=== PATIENT | male | born 1960 | race African-American/Black ===

== ENCOUNTER 2018-08-20 06:43 | Day surgery (SDC) | payer BC, OTHER ==
[2018-08-18 16:04] VITALS: BMI 28.7
[~2018-08-20 06:43] MED LIST: LACTATED RINGERS 1,000 ML IV SCH; LIDOCAINE 1% 20 ML VIAL (10MG/ML) FOR IV START INTRADERMA PRN
[2018-08-20 07:15] VITALS: RESP 16; TEMP 97.5
[2018-08-20 07:19] LABS: Glucose,Whole Blood 108 mg/dL (75-99)
[2018-08-20] MEDS ORDERED: PROPOFOL 10 MG/ML 20 ML VIAL IV ONE (07:47)
[2018-08-20] MEDS ORDERED: LIDOCAINE 1% INJ 10MG/ML (20 ML MDV) ONE (07:47)
[2018-08-20] MEDS ORDERED: GLYCOPYRROLATE 0.2 MG/ML 2 ML VIAL ONE (07:47)
--- NOTE | 2018-08-20 09:06 | P.GSHP ---
History of Present Illness H&P Date: 08/20/18 Chief Complaint: Screening colonoscopy This is a 58-year-old male who presents today for screening colonoscopy. Patient denies a significant GI complaints. Past Medical History Past Medical History: Diabetes Mellitus, Hyperlipidemia, Hypertension History of Any Multi-Drug Resistant Organisms: None Reported Past Surgical History: Appendectomy, Back Surgery, Tonsillectomy Additional Past Surgical History / Comment(s): SINUS SURGERY Past Anesthesia/Blood Transfusion Reactions: No Reported Reaction Smoking Status: Never smoker - Past Family History Father Family Medical History: Cancer Medications and Allergies Home Medications Medication Instructions Recorded Confirmed Type Chlorthalidone [Hygroten] 50 mg PO QAM 08/30/13 08/20/18 History Enalapril [Vasotec] 20 mg PO BID 08/30/13 08/20/18 History Nebivolol HCl [Bystolic] 10 mg PO QAM 08/30/13 08/20/18 History metFORMIN HCL [metFORMIN HCL ER] 750 mg PO BID 08/30/13 08/20/18 History sitaGLIPtin [Januvia] 100 mg PO QAM 08/30/13 08/20/18 History Empagliflozin [Jardiance] 25 mg PO QAM 08/18/18 08/20/18 History cloNIDine HCL [Catapres] 0.1 mg PO BID 08/18/18 08/20/18 History Allergies Allergy/AdvReac Type Severity Reaction Status Date / Time No Known Allergies Allergy Verified 08/20/18 07:08 Surgical - Exam Vital Signs Temp Pulse Resp BP Pulse Ox 97.5 F L 76 16 116/74 100 08/20/18 07:08 08/20/18 07:08 08/20/18 07:08 08/20/18 07:08 08/20/18 07:08 - General well developed, well nourished, no distress - Eyes PERRL - ENT normal pinna - Neck no masses - Respiratory normal expansion - Cardiovascular Rhythm: regular - Abdomen Abdomen: soft, non tender Results - Labs Abnormal Lab Results - Last 24 Hours (Table) 08/20/18 Range/Units 07:14 POC Glucose (mg/dL) 108 H (75-99) mg/dL Assessment and Plan Assessment: We'll perform screening colonoscopy.
--- NOTE | 2018-08-20 09:21 | P.OP ---
Date of Procedure: 08/20/18 Preoperative Diagnosis: Screening colonoscopy Postoperative Diagnosis: Normal colon Procedure(s) Performed: Colonoscopy Anesthesia: MAC Surgeon: Dean Briceño Pathology: none sent Condition: stable Disposition: PACU Description of Procedure: PROCEDURE: The patient was placed on the endoscopy table in the lateral position. Digital rectal examination was performed which revealed no abnormalities. The prostate was symmetrical without nodules. Flexible colonoscope was then placed in the patient's anus and passed throughout the entire colon. The ileocecal valve was visualized. The cecum, ascending, transverse, descending and sigmoid colon were normal. The rectum was normal as well. There were no masses, polyps or diverticula noted in the entire colon. SUMMARY OF FINDINGS: Normal colonoscopy.
[2018-08-20 09:50] VITALS: BP 103/66; PULSE 68
== END 2018-08-20 10:13 | disposition home or self-care (01) ==
LOC: ORWHC2ENDO 06:43
PROVIDERS: ATTEND Surgery
DX: Z12.11 Encounter for screening for malignant neoplasm of colon (principal); I10 Essential (primary) hypertension; E78.5 Hyperlipidemia, unspecified; E11.9 Type 2 diabetes mellitus without complications; Z79.84 Long term (current) use of oral hypoglycemic drugs; Z79.899 Other long term (current) drug therapy; Z97.2 Presence of dental prosthetic device (complete) (partial); Z80.9 Family history of malignant neoplasm, unspecified
CPT/HCPCS: G0121; J2001; J2704; 45378

== ENCOUNTER 2021-07-25 10:02 | Emergency (ER) | payer BC, OTHER ==
[2021-07-25 10:10] VITALS: BP 147/99; PULSE 87; RESP 16; TEMP 98.5
[2021-07-25] MEDS ORDERED: diphenhydrAMINE 50 MG/ML 1 ML VIAL IVP STA (10:22)
[2021-07-25] MEDS ORDERED: methylPREDNISolone SOD SUCCI 125 MG/2 ML VIAL IV STA (10:22)
[2021-07-25] MEDS ORDERED: FAMOTIDINE 20 MG/2 ML VIAL IV STA (10:22)
[2021-07-25 10:42] LABS: Basophils # (A) 0.1 k/uL (0-0.2); Basophils % (A) 1 %; Eosinophils # (A) 0.2 k/uL (0-0.7); Eosinophils % (A) 4 %; HCT 43.8 % (39.0-53.0); HGB 13.6 gm/dL (13.0-17.5); Lymphocytes # (A) 1.4 k/uL (1.0-4.8); Lymphocytes % (A) 24 %; MCH 30.4 pg (25.0-35.0); Mean Platelet Volume 7.4; Monocytes # (A) 0.5 k/uL (0-1.0); Monocytes % (A) 8 %; Neutrophils # (A) 3.5 k/uL (1.3-7.7); Neutrophils % (A) 60 %; Platelet Count 284 k/uL (150-450); RBC 4.47 m/uL (4.30-5.90); RDW 12.4 % (11.5-15.5); WBC 5.9 k/uL (3.8-10.6)
[2021-07-25 11:03] LABS: ALT 19 U/L (4-49); AST 23 U/L (17-59); African American GFR (CKD) >90 (>60 ml/min/1.73 sqM); Albumin 4.1 g/dL (3.5-5.0); Alkaline Phosphatase 74 U/L (38-126); Anion Gap 10 mmol/L; Blood Urea Nitrogen 21 mg/dL (9-20); Calcium 9.7 mg/dL (8.4-10.2); Carbon Dioxide 29 mmol/L (22-30); Chloride 100 mmol/L (98-107); Glucose 175 mg/dL (74-99); Non-African American GFR(CKD) 85 (>60 ml/min/1.73 sqM); Sodium 139 mmol/L (137-145); Total Bilirubin 0.5 mg/dL (0.2-1.3); Total Protein 7.7 g/dL (6.3-8.2)
--- NOTE | 2021-07-25 11:27 | ED ---
Allergic Reaction HPI - General Chief complaint: Allergic Reaction Stated complaint: swollen extremities,allergic reaction Time Seen by Provider: 07/25/21 10:17 Source: patient Mode of arrival: ambulatory Limitations: no limitations - History of Present Illness Initial Comments: Patient is a 61-year-old male presenting with chief complaint of ALLERGIC re action. Patient states that on Friday he received 3 vaccinations, tetanus, Covid booster, and hepatitis. States that by Friday evening he was experiencing hives and itching. After located mainly on the upper and lower extremities, as well as the sides and back. He has been taking Benadryl at home which has been somewhat helpful in alleviating his symptoms. He denies any chest pain, shortness of breath, chest tightness, dysphasia, throat swelling. Denies any fever, chills, nausea, vomiting, abdominal pain, numbness, tingling, vision or hearing changes, neck pain or stiffness, headache. - Related Data Home Medications Medication Instructions Recorded Confirmed Chlorthalidone [Hygroten] 50 mg PO QAM 08/30/13 08/20/18 Enalapril [Vasotec] 20 mg PO BID 08/30/13 08/20/18 Nebivolol HCl [Bystolic] 10 mg PO QAM 08/30/13 08/20/18 metFORMIN HCL [metFORMIN HCL ER] 750 mg PO BID 08/30/13 08/20/18 sitaGLIPtin [Januvia] 100 mg PO QAM 08/30/13 08/20/18 Empagliflozin [Jardiance] 25 mg PO QAM 08/18/18 08/20/18 cloNIDine HCL [Catapres] 0.1 mg PO BID 08/18/18 08/20/18 Previous Rx's Medication Instructions Recorded methylPREDNISolone Dose Pack 4 mg PO DIRECTED #1 packet 07/25/21 [Medrol Dose Pack] Allergies Allergy/AdvReac Type Severity Reaction Status Date / Time No Known Allergies Allergy Verified 07/25/21 10:10 Review of Systems ROS Statement: Those systems with pertinent positive or pertinent negative responses have been documented in the HPI. ROS Other: All systems not noted in ROS Statement are negative. Past Medical History Past Medical History: Diabetes Mellitus, Hyperlipidemia, Hypertension History of Any Multi-Drug Resistant Organisms: None Reported Past Surgical History: Appendectomy, Back Surgery, Tonsillectomy Additional Past Surgical History / Comment(s): SINUS SURGERY Past Anesthesia/Blood Transfusion Reactions: No Reported Reaction Past Psychological History: No Psychological Hx Reported Smoking Status: Never smoker Past Alcohol Use History: Occasional Past Drug Use History: None Reported - Past Family History Father Family Medical History: Cancer General Exam Limitations: no limitations General appearance: alert, in no apparent distress Head exam: Present: atraumatic, normocephalic, normal inspection Eye exam: Present: normal appearance, EOMI. Absent: scleral icterus ENT exam: Present: normal exam, normal oropharynx, mucous membranes moist Neck exam: Present: normal inspection Respiratory exam: Present: normal lung sounds bilaterally. Absent: respiratory distress, wheezes, rales, rhonchi, stridor Cardiovascular Exam: Present: regular rate, normal rhythm, normal heart sounds. Absent: systolic murmur, diastolic murmur, rubs, gallop, clicks Neurological exam: Present: alert, oriented X3, CN II-XII intact Psychiatric exam: Present: normal affect, normal mood Skin exam: Present: warm, dry, intact, urticaria (On the upper and lower extremities bilaterally) Course Vital Signs 07/25/21 10:04 Temperature 98.5 F Pulse Rate 87 Respiratory 16 Rate Blood Pressure 147/99 O2 Sat by Pulse 99 Oximetry Medical Decision Making - Medical Decision Making Patient is a 61-year-old male presenting for evaluation of ALLERGIC reaction. Patient states that symptoms of hives and itching began on Friday night. States that he received his tetanus, Covid booster, hepatitis vaccination on Friday, otherwise no new foods, medications, or products. He denies any shortness of breath, chest tightness, dysphasia. On examination lungs are clear to auscultation, there mild hives located on the bilateral upper and lower extremities. Patient was given Benadryl, Pepcid, Solu-Medrol. Patient states that his symptoms are somewhat alleviated at this time. He appears stable for discharge and outpatient follow-up at this time. Educated patient on return parameters and alarming symptoms. Follow-up with PCP this week. Report back to ER if any worsening symptoms. Continue the use of Benadryl as needed. Patient was sent with a prescription for Medrol Dosepak. Take medication as prescribed. Answered all questions. Patient conveyed verbal understanding and agreed to the plan. - Lab Data Result diagrams: 07/25/21 10:15 07/25/21 10:15 Lab Results 07/25/21 07/25/21 Range/Units 10:15 10:15 WBC 5.9 (3.8-10.6) k/uL RBC 4.47 (4.30-5.90) m/uL Hgb 13.6 (13.0-17.5) gm/dL Hct 43.8 (39.0-53.0) % MCV 98.0 (80.0-100.0) fL MCH 30.4 (25.0-35.0) pg MCHC 31.0 (31.0-37.0) g/dL RDW 12.4 (11.5-15.5) % Plt Count 284 (150-450) k/uL MPV 7.4 Neutrophils % 60 % Lymphocytes % 24 % Monocytes % 8 % Eosinophils % 4 % Basophils % 1 % Neutrophils # 3.5 (1.3-7.7) k/uL Lymphocytes # 1.4 (1.0-4.8) k/uL Monocytes # 0.5 (0-1.0) k/uL Eosinophils # 0.2 (0-0.7) k/uL Basophils # 0.1 (0-0.2) k/uL Sodium 139 (137-145) mmol/L Potassium 4.0 (3.5-5.1) mmol/L Chloride 100 (98-107) mmol/L Carbon Dioxide 29 (22-30) mmol/L Anion Gap 10 mmol/L BUN 21 H (9-20) mg/dL Creatinine 0.97 (0.66-1.25) mg/dL Est GFR (CKD-EPI)AfAm >90 (>60 ml/min/1.73 sqM) Est GFR (CKD-EPI)NonAf 85 (>60 ml/min/1.73 sqM) Glucose 175 H (74-99) mg/dL Calcium 9.7 (8.4-10.2) mg/dL Total Bilirubin 0.5 (0.2-1.3) mg/dL AST 23 (17-59) U/L ALT 19 (4-49) U/L Alkaline Phosphatase 74 (38-126) U/L Total Protein 7.7 (6.3-8.2) g/dL Albumin 4.1 (3.5-5.0) g/dL Disposition Clinical Impression: Allergic reaction Disposition: HOME SELF-CARE Condition: Good Instructions (If sedation given, give patient instructions): Urticaria (ED) Additional Instructions: Take medications as prescribed. Continue to take Benadryl as needed, per package instructions. Follow-up with your primary care in 1-2 days. Report back to ER if any worsening symptoms. Prescriptions: methylPREDNISolone Dose Pack [Medrol Dose Pack] 4 mg PO DIRECTED #1 packet Is patient prescribed a controlled substance at d/c from ED?: No Referrals: Chato Villela MD [Primary Care Provider] - 1-2 days Time of Disposition: 11:27
== END 2021-07-25 11:43 | disposition home or self-care (01) ==
LOC: EC 10:02
DX: T78.40XA Allergy, unspecified, initial encounter (principal); I10 Essential (primary) hypertension; E11.9 Type 2 diabetes mellitus without complications
CPT/HCPCS: 36415; 80053; 85025; 99284; 96374; 96375; J1200; J2930

== ENCOUNTER 2023-05-08 09:48 | Emergency (ER) | payer OTHER ==
[2023-05-08 10:04] VITALS: RESP 18
[2023-05-08] MEDS: SODIUM CHLORIDE 0.9% 1,000 ML IV STA (10:48)
[2023-05-08 10:56] LABS: Basophils % (A) 0 %; Eosinophils # (A) 0.4 k/uL (0-0.7); Eosinophils % (A) 4 %; HCT 28.6 % (39.0-53.0); HGB 8.9 gm/dL (13.0-17.5); Hypochromasia Marked; Lymphocytes # (A) 1.3 k/uL (1.0-4.8); Lymphocytes % (A) 13 %; MCHC 31.2 g/dL (31.0-37.0); MCV 80.3 fL (80.0-100.0); Mean Platelet Volume 7.6; Monocytes # (A) 0.8 k/uL (0-1.0); Monocytes % (A) 7 %; Neutrophils # (A) 7.8 k/uL (1.3-7.7); Neutrophils % (A) 73 %; Platelet Count 629 k/uL (150-450); RBC 3.56 m/uL (4.30-5.90); WBC 10.6 k/uL (3.8-10.6)
[2023-05-08 10:57] LABS: Appearance,Urine Clear (Clear); Bilirubin,Urine Negative (Negative); Blood,Urine Negative (Negative); Color,Urine Colorless; Glucose,Urine (UA) 4+ (Negative); Ketones,Urine Negative (Negative); Leukocyte Esterase,Urine Negative (Negative); Nitrite,Urine Negative (Negative); PH, Urine 5.5 (5.0-8.0); Protein,Urine Negative (Negative); Specific Gravity,Urine 1.026 (1.001-1.035); Urobilinogen,Urine <2.0 mg/dL (<2.0)
[2023-05-08 11:05] LABS: INR 0.9 (<1.2); Prothrombin Time 10.4 sec (10.0-12.5)
[2023-05-08 11:11] LABS: ALT 15 U/L (4-49); AST 21 U/L (17-59); African American GFR (CKD) 67 (>60 ml/min/1.73 sqM); Albumin 4.1 g/dL (3.5-5.0); Alkaline Phosphatase 87 U/L (38-126); Amylase 68 U/L (30-110); Anion Gap 11 mmol/L; Blood Urea Nitrogen 31 mg/dL (9-20); Calcium 10.1 mg/dL (8.4-10.2); Carbon Dioxide 28 mmol/L (22-30); Chloride 99 mmol/L (98-107); Glucose 183 mg/dL (74-99); Lipase 150 U/L (23-300); Non-African American GFR(CKD) 58 (>60 ml/min/1.73 sqM); Potassium 4.5 mmol/L (3.5-5.1); Sodium 138 mmol/L (137-145); Total Bilirubin 0.3 mg/dL (0.2-1.3); Total Protein 7.9 g/dL (6.3-8.2)
--- NOTE | 2023-05-08 11:57 | CT ---
EXAMINATION TYPE: CT ChestAbdPelvis w con DATE OF EXAM: 05/08/2023 INDICATION: Umbilicus pain for several months COMPARISON: None CT DLP: 1081.8 mGycm CONTRAST: Performed without Oral Contrast and with IV Contrast, patient injected with 100 ml mL of Isovue 300. TECHNIQUE: Axial images at 5 mm thick sections. Reconstructed images in the coronal plane. Delayed images through the kidneys. FINDINGS: CT CHEST: Portion of the thyroid visualized is normal. There is a small to moderate left pleural effusion. Minimal adjacent compressive atelectasis may be p resent. No enlarged mediastinal or hilar adenopathy is evident. The ascending aorta diameter at the level of the main pulmonary artery is 3.7 cm. The main pulmonary artery diameter at the bifurcation is 3.[address] ABDOMEN: Mild ascites is present. Minimal perinephric fluid is present on the right. Liver: Normal Spleen: Normal Pancreas: Normal Adrenal glands: The adrenal glands are normal. Gallbladder: Normal Kidneys: No masses are evident. No hydronephrosis is present. No cysts are present. No renal stone s are evident. Delayed images obtained through the kidneys appear unremarkable Aorta: Mild Vascular calcification is within the aorta. Inferior vena cava: Normal. CT PELVIS: There is some nonspecific fluid-filled small bowel loops within the midabdomen. Normal colonic bowel gas with some fecal debris is present. The study is without oral contrast limiting bowel evaluation. Appendix: Not identified. There may be a prior appendectomy. Correlate with surgical history. No susp icious dilated tubular structures or inflammatory changes evident. Urinary bladder: Normal. Genitourinary structures: Prostate appears normal Osseous structures: No suspicious lytic or sclerotic lesions. IMPRESSION: 1. Small to moderate left pleural effusion. 2. Mild ascites within the abdomen and pelvis. 3. Fluid-filled nondilated small bowel loops within the midabdomen. Correlate for ileus.
--- NOTE | 2023-05-08 12:48 | ED ---
General Adult HPI - General Chief complaint: Abdominal Pain Stated complaint: ABD pain, needs CAT scan Time Seen by Provider: 05/08/23 09:58 Source: patient, RN notes reviewed, old records reviewed Mode of arrival: ambulatory Limitations: no limitations - History of Present Illness Initial comments: Patient is a 62-year-old male who presents emergency department complaining of abdominal pain for the last 3 to 4 months. Patient seems to be primarily at the umbilicus. Originally thought it may be related to hernia and was due to follow-up with Dr. Mccallum. He saw him in the office today and I was contacted to obtain CT imaging for the patient is Dr. Mccallum is concern for possible malignancy. Denies any chest pain or shortness of breath. Denies any nausea, vomiting, diarrhea. He has no other acute complaints at this time. Presents for further evaluation at this time.Patient endorses recent weight loss as well over the last few months. - Related Data Home Medications Medication Instructions Recorded Confirmed Chlorthalidone [Hygroten] 50 mg PO QAM 08/30/13 08/20/18 Enalapril [Vasotec] 20 mg PO BID 08/30/13 08/20/18 Nebivolol HCl [Bystolic] 10 mg PO QAM 08/30/13 08/20/18 metFORMIN HCL [metFORMIN HCL ER] 750 mg PO BID 08/30/13 08/20/18 sitaGLIPtin [Januvia] 100 mg PO QAM 08/30/13 08/20/18 Empagliflozin [Jardiance] 25 mg PO QAM 08/18/18 08/20/18 cloNIDine HCL [Catapres] 0.1 mg PO BID 08/18/18 08/20/18 Previous Rx's Medication Instructions Recorded methylPREDNISolone Dose Pack 4 mg PO DIRECTED #1 packet 07/25/21 [Medrol Dose Pack] Allergies Allergy/AdvReac Type Severity Reaction Status Date / Time No Known Allergies Allergy Verified 05/08/23 09:59 Review of Systems ROS Statement: Those systems with pertinent positive or pertinent negative responses have been documented in the HPI. Review of Systems: CONST: Denies fever EYES: Denies blurry vision ENT: Denies nasal congestion C/V: Denies Chest pain RESP: Denies shortness of breath GI: Endorses abdominal pain : Denies dysuria SKIN: Denies rash. MSK: Denies joint pain. NEURO: Denies headache ROS Other: All systems not noted in ROS Statement are negative. Past Medical History Past Medical History: Diabetes Mellitus, Hyperlipidemia, Hypertension History of Any Multi-Drug Resistant Organisms: None Reported Past Surgical History: Appendectomy, Back Surgery, Tonsillectomy Additional Past Surgical History / Comment(s): SINUS SURGERY Past Anesthesia/Blood Transfusion Reactions: No Reported Reaction Past Psychological History: No Psychological Hx Reported Smoking Status: Never smoker Past Alcohol Use History: Occasional Past Drug Use History: None Reported - Past Family History Father Family Medical History: Cancer General Exam - General Exam Comments Initial Comments: General: Appears in no acute distress. HEAD: Normal with no signs of head trauma. EYES: PERRLA, EOMI, conjunctiva normal, no discharge. ENT: Hearing grossly intact, normal oropharynx. RESPIRATORY: Clear breath sounds bilaterally. No wheezes, rales, or rhonchi. C/V: Regular rate and rhythm. S1 and S2 auscultated, no edema, peripheral pulses 2+ and intact throughout ABD: Abdomen is soft, nondistended. Tender to palpation around the umbilicus. Does appear to have some small masses or possible palpable lymph nodes in the abdominal wall. Concern for possible malignancy or masses. EXT: Normal range of motion, no obvious deformity SKIN: No rashes or lesions observed on exposed skin. NEURO: Alert and oriented x 4. Limitations: no limitations Course Vital Signs 05/08/23 05/08/23 09:57 12:43 Temperature 98.5 F 98.1 F Pulse Rate 87 78 Respiratory 18 18 Rate Blood Pressure 146/89 144/94 O2 Sat by Pulse 100 99 Oximetry Medical Decision Making - Medical Decision Making Was pt. sent in by a medical professional or institution (, PA, [employer], urgent care, hospital, or penitentiary...) When possible be specific @ -Patient sent by Dr. Mccallum, his surgeon Did you speak to anyone other than the patient for history (EMS, parent, family, police, friend...)? What history was obtained from this source @ -No Did you review nursing and triage notes (agree or disagree)? Why? @ -I reviewed and agree with nursing and triage notes Were old charts reviewed (outside hosp., previous admission, EMS record, old EKG, old radiological studies, urgent care reports/EKG's, penitentiary records)? Report findings @ -Old charts reviewed Differential Diagnosis (chest pain, altered mental status, abdominal pain women, abdominal pain men, vaginal bleeding, weakness, fever, dyspnea, syncope, headach e, dizziness, GI bleed, back pain, seizure, CVA, palpatations, mental health, musculoskeletal)? @ -Differential Abdominal Pain Men: Appendicitis, cholecystitis, diverticulosis, ischemic bowel, pancreatitis, hepatitis, UTI, gastroenteritis, AAA, incarcerated hernia, bowel obstruction, constipation, inflammatory bowel, hepatitis, peptic ulcer disease, splenic infarction, perforated viscus, testicular torsion, this is not meant to be an all-inclusive list EKG interpreted by me (3pts min.). @ -As above X-rays interpreted by me (1pt min.). @ -None done CT interpreted by me (1pt min.). @ -CT imaging appears to show findings concerning for carcinomatosis throughout the abdomen. Radiology interpreted as revealing ascites, as well as moderate left pleural effusion only. No mention of possible masses however patient does have thickening of the omentum which is concerning. U/S interpreted by me (1pt. min.). @ -None done What testing was considered but not performed or refused? (CT, X-rays, U/S, labs)? Why? @ -None What meds were considered but not given or refused? Why? @ -None Did you discuss the management of the patient with other professionals (professionals i.e. , PA, [employer], lab, RT, psych nurse, drug abuse social worker, manager machine, teacher, disbursing officer, rn case management)? Give summary @ -Discussed imaging with Dr. Mccallum who sent the patient for CT imaging. We both agree findings concerning for carcinomatosis. Both would like the patient to follow-up with oncology for further workup. Radiology did not interpreted as this, and Dr. Mccallum will reach out to radiology for addendum, as there is obvious concern on imaging. I spoke with Dr. Villela the patient's PCP who expressed understanding and will arrange for follow-up for the patient with oncology. Recommended he see the patient in the office tomorrow. Was smoking cessation discussed for >3mins.? @ -No Was critical care preformed (if so, how long)? @ -No Were there social determinants of health that impacted care today? How? (Homelessness, low income, unemployed, alcoholism, drug addiction, transportation, low edu. Level, literacy, decrease access to med. care, senior living, rehab)? @ -No Was there de-escalation of care discussed even if they declined (Discuss DNR or withdrawal of care, Hospice)? DNR status @ -No What co-morbidities impacted this encounter? (DM, HTN, Smoking, COPD, CAD, Cancer, CVA, ARF, Chemo, Hep., AIDS, mental health diagnosis, sleep apnea, morbid obesity)? @ -None Was patient admitted / discharged? Hospital course, mention meds given and route, prescriptions, significant lab abnormalities, going to OR and other pertinent info. @ -Based on the patient's presentation and physical exam, presents emergency department for abdominal pain for months. Concern for possible malignancy after being sent from his surgeons office Dr. Mccallum. We will obtain CT imaging and abdominal labs. Vital signs within acceptable limits. Labs are remarkable for an anemia with a hemoglobin of 8.9. Remainder the workup relatively unremarkable. CT imaging concerning for carcinomatosis. Did discuss the imaging results with Dr. Mccallum as radiology did not comment on this and he was in agreement with this a ssessment and will work on having radiology to addend the reading. Recommended that patient be discharged with close outpatient follow-up with PCP as well as oncology. I did discuss with patient's PCP, Dr. Villela who is in agreement with this plan and he will see the patient in the office tomorrow. I spoke with the patient regarding all these findings as well as the plan. He expressed understa nding. He is currently resting comfortably with no complaints. Patient will follow-up with Dr. Villela tomorrow with eventual follow-up with oncology. I instructed the patient to follow up with their PCP in the next 1-3 days. I explained that the patient should return to the emergency department if they experience any worsening symptoms. Strict return precautions were discussed with the patient. The patient expressed understanding of these instructions. I answered all questions that the patient had. The patient was discharged home in fair condition with their prescriptions and follow up information. Undiagnosed new problem with uncertain prognosis? @ -No Drug Therapy requiring intensive monitoring for toxicity (Heparin, Nitro, Insulin, Cardizem)? @ -No Were any procedures done? @ -No Diagnosis/symptom? @ -Abdominal pain, concern for abdominal malignancy Acute, or Chronic, or Acute on Chronic? @ -Acute Uncomplicated (without systemic symptoms) or Complicated (systemic symptoms)? @ -Complicated Side effects of treatment? @ -No Exacerbation, Progression, or Severe Exacerbation? @ -No Poses a threat to life or bodily function? How? (Chest pain, [place], [place], pneumonia, PE, COPD, DKA, ARF, appy, cholecystitis, CVA, Diverticulitis, Homicidal, Suicidal, threat to staff... and all critical care pts) @ -Unlikely in the acute setting - Lab Data Result diagrams: 05/08/23 10:32 05/08/23 10:32 Lab Results 05/08/23 05/08/23 05/08/23 Range/Units 10:32 10:32 10:32 WBC 10.6 (3.8-10.6) k/uL RBC 3.56 L (4.30-5.90) m/uL Hgb 8.9 L (13.0-17.5) gm/dL Hct 28.6 L (39.0-53.0) % MCV 80.3 (80.0-100.0) fL MCH 25.0 (25.0-35.0) pg MCHC 31.2 (31.0-37.0) g/dL RDW 15.0 (11.5-15.5) % Plt Count 629 H (150-450) k/uL MPV 7.6 Neutrophils % 73 % Lymphocytes % 13 % Monocytes % 7 % Eosinophils % 4 % Basophils % 0 % Neutrophils # 7.8 H (1.3-7.7) k/uL Lymphocytes # 1.3 (1.0-4.8) k/uL Monocytes # 0.8 (0-1.0) k/uL Eosinophils # 0.4 (0-0.7) k/uL Basophils # 0.0 (0-0.2) k/uL Hypochromasia Marked PT 10.4 (10.0-12.5) sec INR 0.9 (<1.2) APTT 31.0 H (22.0-30.0) sec Sodium (137-145) mmol/L Potassium (3.5-5.1) mmol/L Chloride (98-107) mmol/L Carbon Dioxide (22-30) mmol/L Anion Gap mmol/L BUN (9-20) mg/dL Creatinine (0.66-1.25) mg/dL Est GFR (CKD-EPI)AfAm (>60 ml/min/1.73 sqM) Est GFR (CKD-EPI)NonAf (>60 ml/min/1.73 sqM) Glucose (74-99) mg/dL Calcium (8.4-10.2) mg/dL Total Bilirubin (0.2-1.3) mg/dL AST (17-59) U/L ALT (4-49) U/L Alkaline Phosphatase (38-126) U/L Total Protein (6.3-8.2) g/dL Albumin (3.5-5.0) g/dL Amylase (30-110) U/L Lipase (23-300) U/L Urine Color Colorless Urine Appearance Clear (Clear) Urine pH 5.5 (5.0-8.0) Ur Specific [place] 1.026 (1.001-1.035) Urine Protein Negative (Negative) Urine Glucose (UA) 4+ H (Negative) Urine Ketones Negative (Negative) Urine Blood Negative (Negative) Urine Nitrite Negative (Negative) Urine Bilirubin Negative (Negative) Urine Urobilinogen <2.0 (<2.0) mg/dL Ur Leukocyte Esterase Negative (Negative) 05/08/23 Range/Units 10:32 WBC (3.8-10.6) k/uL RBC (4.30-5.90) m/uL Hgb (13.0-17.5) gm/dL Hct (39.0-53.0) % MCV (80.0-100.0) fL MCH (25.0-35.0) pg MCHC (31.0-37.0) g/dL RDW (11.5-15.5) % Plt Count (150-450) k/uL MPV Neutrophils % % Lymphocytes % % Monocytes % % Eosinophils % % Basophils % % Neutrophils # (1.3-7.7) k/uL Lymphocytes # (1.0-4.8) k/uL Monocytes # (0-1.0) k/uL Eosinophils # (0-0.7) k/uL Basophils # (0-0.2) k/uL Hypochromasia PT (10.0-12.5) sec INR (<1.2) APTT (22.0-30.0) sec Sodium 138 (137-145) mmol/L Potassium 4.5 (3.5-5.1) mmol/L Chloride 99 (98-107) mmol/L Carbon Dioxide 28 (22-30) mmol/L Anion Gap 11 mmol/L BUN 31 H (9-20) mg/dL Creatinine 1.31 H (0.66-1.25) mg/dL Est GFR (CKD-EPI)AfAm 67 (>60 ml/min/1.73 sqM) Est GFR (CKD-EPI)NonAf 58 (>60 ml/min/1.73 sqM) Glucose 183 H (74-99) mg/dL Calcium 10.1 (8.4-10.2) mg/dL Total Bilirubin 0.3 (0.2-1.3) mg/dL AST 21 (17-59) U/L ALT 15 (4-49) U/L Alkaline Phosphatase 87 (38-126) U/L Total Protein 7.9 (6.3-8.2) g/dL Albumin 4.1 (3.5-5.0) g/dL Amylase 68 (30-110) U/L Lipase 150 (23-300) U/L Urine Color Urine Appearance (Clear) Urine pH (5.0-8.0) Ur Specific [place] (1.001-1.035) Urine Protein (Negative) Urine Glucose (UA) (Negative) Urine Ketones (Negative) Urine Blood (Negative) Urine Nitrite (Negative) Urine Bilirubin (Negative) Urine Urobilinogen (<2.0) mg/dL Ur Leukocyte Esterase (Negative) Disposition Clinical Impression: Abdominal mass Disposition: HOME SELF-CARE Condition: Fair Additional Instructions: Follow up with Dr. Villela for oncology follow up over concern for malignancy and abdominal masses concerning for carcinomatosis. Is patient prescribed a controlled substance at d/c from ED?: No Referrals: Chato Villela MD [Primary Care Provider] - 1-2 days Blanco Mittal MD [STAFF PHYSICIAN] - 1-2 days Emilio Vallejo [STAFF PHYSICIAN] - 1-2 days Time of Disposition: 12:41
[2023-05-08 13:15] VITALS: BP 144/94; PULSE 78; TEMP 98.1
== END 2023-05-08 13:13 | disposition home or self-care (01) ==
LOC: EC 09:48
DX: K56.7 Ileus, unspecified (principal); R18.8 Other ascites; J90 Pleural effusion, not elsewhere classified; E11.9 Type 2 diabetes mellitus without complications; I10 Essential (primary) hypertension; Z79.899 Other long term (current) drug therapy; Z79.84 Long term (current) use of oral hypoglycemic drugs
CPT/HCPCS: 36415; 80053; 82150; 83690; 85025; 85610; 85730; 81003; 71260; 74177; 99284; 96360; 96361; Q9967

== ENCOUNTER → 2023-05-29 | Outpatient (CLI) | payer OTHER ==
--- NOTE | 2023-06-01 08:41 | PE ---
EXAMINATION TYPE: PET CT fusion skull to thigh DATE OF EXAM: 05/29/2023 CLINICAL INDICATION:Male, 62 years old with history of R59.0 LOCALIZED ENLARGED LYMPH NODES; TECHNIQUE: Following the intravenous administration of 8.84 mCi of F-18 FDG, whole body images are performed from the skull base to the midthigh. Images are reviewed on the computer in the coronal, a xial, and sagittal planes. Reconstructed rotating images are created on independent workstation and reviewed on the computer. A non-contrast CT is performed in conjunction with the PET scan. Glucose level 122 mg/dL CT DLP: 08/18/1977 mGycm, Automated exposure control for dose reduction was used. COMPARISON: CT 05/08/2023, PET/CT None, FINDINGS: Mediastinal SUV mean is 1.8. Hepatic parenchyma SUV mean is 2.5. SKULL BASE AND NECK: No suspicious radiotracer activity. CHEST, MEDIASTINUM, AND HILAR REGION: * Anterior right epicardial fat lymph nodes max SUV 4.1. * Right internal mammary memory lymph node max SUV 2.2 ABDOMEN AND PELVIS: * Intense uptake within the bowel limits evaluation. Abnormal uptake with examples below: * There is nodularity to the omentum most pronounced on e series 3 image 131 which shows a radiotrac er uptake max SUV 11.0. * Uptake along the liver capsule anteriorly max SUV 7.1 * Another focus of radiotracer uptake in the mid abdomen extends a prior max SUV 9.6. * Uptake extends into the umbilicus max SUV 6.7 MUSCULOSKELETAL STRUCTURES: No suspicious radiotracer activity. OTHER CT: Large left pleural effusion with associated atelectasis. The heart is mildly enlarged for s ize. Trace free abdominal fluid. IMPRESSION: Intense uptake throughout the bowel limits evaluation within the abdomen and mesentery. There is upta ke within omental caking throughout the mesentery as well as a few scattered thoracic lymph nodes fin dings suspicious for malignancy.
== END | disposition home or self-care (01) ==
LOC: RADPETMAIN 06:26
PROVIDERS: ATTEND Internal Medicine
DX: R59.0 Localized enlarged lymph nodes (principal)
CPT/HCPCS: 78815; A9552

== ENCOUNTER 2023-06-16 11:22 | Day surgery (SDC) | payer OTHER ==
[2023-06-13 09:42] VITALS: BMI 26.4
[~2023-06-16 11:22] MED LIST changes: +HYDROmorphone 0.5 MG/0.5 ML SYRINGE IVP PRN; -LACTATED RINGERS 1,000 ML IV SCH; +LIDOCAINE 1% (10MG/ML) FOR IV START INTRADERMA PRN; -LIDOCAINE 1% 20 ML VIAL (10MG/ML) FOR IV START INTRADERMA PRN; +Pre Op ABX Message 1 EACH MISC MISCELLANE ONE
[2023-06-16] MEDS: LACTATED RINGERS 1,000 ML IV SCH (11:50)
[2023-06-16 12:13] LABS: Glucose,Whole Blood 139 mg/dL (70-110)
[2023-06-16] MEDS: HEPARIN SODIUM,PORCINE 5,000 UNIT/ML 1 ML VIAL SQ PRN (12:14)
[2023-06-16] MEDS: ONDANSETRON 4 MG/2 ML VIAL IVP ONE (12:14)
[2023-06-16] MEDS: ACETAMINOPHEN TAB 500 MG TAB PO PRN (12:14)
--- NOTE | 2023-06-16 12:30 | P.GSHP ---
History of Present Illness H&P Date: 06/16/23 Chief Complaint: Colon cancer 62-year-old male here for Port-A-Cath placement. Patient recently found to have metastatic adenocarcinoma. Will be starting palliative chemotherapy soon. He has lost further weight since he was last seen in the office. Past Medical History Past Medical History: Cancer, Diabetes Mellitus, Hyperlipidemia, Hypertension Additional Past Medical History / Comment(s): Current colon cancer. History of Any Multi-Drug Resistant Organisms: None Reported Past Surgical History: Appendectomy, Back Surgery, Tonsillectomy Additional Past Surgical History / Comment(s): SINUS SURGERY. Past Anesthesia/Blood Transfusion Reactions: No Reported Reaction Smoking Status: Never smoker - Past Family History Father Family Medical History: Cancer Medications and Allergies Home Medications Medication Instructions Recorded Confirmed Type Chlorthalidone [Hygroten] 50 mg PO QAM 08/30/13 06/13/23 History Enalapril [Vasotec] 20 mg PO BID 08/30/13 06/13/23 History metFORMIN HCL [metFORMIN HCL ER] 750 mg PO BID 08/30/13 06/13/23 History sitaGLIPtin [Januvia] 100 mg PO QAM 08/30/13 06/13/23 History Empagliflozin [Jardiance] 25 mg PO QAM 08/18/18 06/13/23 History cloNIDine HCL [Catapres] 0.1 mg PO BID 08/18/18 06/13/23 History Rosuvastatin [Crestor] 10 mg PO DAILY 06/13/23 06/13/23 History Tamsulosin [Flomax] 0.4 mg PO DAILY 06/13/23 06/13/23 History carvediloL [Coreg] 6.25 mg PO BID 06/13/23 06/13/23 History Allergies Allergy/AdvReac Type Severity Reaction Status Date / Time No Known Allergies Allergy Verified 06/16/23 12:26 Surgical - Exam Vital Signs Temp Pulse Resp BP Pulse Ox 97.5 F L 85 16 144/89 98 06/16/23 12:04 06/16/23 12:04 06/16/23 12:04 06/16/23 12:04 06/16/23 12:04 Physical exam: General: Well-developed, well-nourished HEENT: Normocephalic, sclerae nonicteric Abdomen: Nontender, nondistended Extremities: No edema Neuro: Alert and oriented Results - Labs Abnormal Lab Results - Last 24 Hours (Table) 06/16/23 Range/Units 12:11 POC Glucose (mg/dL) 139 H (70-110) mg/dL Assessment and Plan (1) Metastatic adenocarcinoma Narrative/Plan: 62-year-old male with metastatic adenocarcinoma. Will proceed with Port-A-Cath placement at this time. Risks of bleeding, infection, DVT, pneumothorax, catheter malfunction, anesthesia related complications were discussed. The patient understands and wishes to proceed. Current Visit: Yes Status: Acute Code(s): C79.9 - SECONDARY MALIGNANT NEOPLASM OF UNSPECIFIED SITE SNOMED Code(s): 259049803848836
[2023-06-16 12:41] LABS: Anisocytosis Slight; Basophils % (A) 0 %; Eosinophils # (A) 0.2 k/uL (0-0.7); Eosinophils % (A) 2 %; HCT 34.5 % (39.0-53.0); HGB 10.3 gm/dL (13.0-17.5); Hypochromasia Slight; Lymphocytes # (A) 1.3 k/uL (1.0-4.8); Lymphocytes % (A) 13 %; MCH 24.1 pg (25.0-35.0); MCV 80.4 fL (80.0-100.0); Mean Platelet Volume 7.3; Microcytosis Slight; Monocytes # (A) 0.6 k/uL (0-1.0); Monocytes % (A) 6 %; Neutrophils # (A) 7.8 k/uL (1.3-7.7); Neutrophils % (A) 78 %; Platelet Count 665 k/uL (150-450); RBC 4.28 m/uL (4.30-5.90); RDW 18.3 % (11.5-15.5)
[2023-06-16] MEDS: HEPARIN SODIUM,PORCINE 100 UNIT/ML 5 ML VIAL IV ONE ×2 (12:57→13:19)
[2023-06-16] MEDS: LIDOCAINE (PF) 10 MG/ML 2 ML VIAL SQ ONE ×2 (12:58→13:04)
[2023-06-16] MEDS: SODIUM CHLORIDE 0.9% 50 ML with ceFAZolin 2,000 MG IV ONE (12:59)
[2023-06-16 13:25] LABS: African American GFR (CKD) >90 (>60 ml/min/1.73 sqM); Anion Gap 12 mmol/L; Blood Urea Nitrogen 27 mg/dL (9-20); Calcium 10.1 mg/dL (8.4-10.2); Carbon Dioxide 24 mmol/L (22-30); Chloride 98 mmol/L (98-107); Glucose 124 mg/dL (74-99); Non-African American GFR(CKD) >90 (>60 ml/min/1.73 sqM); Potassium 4.7 mmol/L (3.5-5.1); Sodium 134 mmol/L (137-145)
[2023-06-16] MEDS ORDERED: fentaNYL (PF) 50 MCG/ML 2 ML AMP ONE (13:41)
[2023-06-16] MEDS ORDERED: MIDAZOLAM 2 MG/2 ML VIAL ONE (13:41)
[2023-06-16] MEDS ORDERED: LIDOCAINE 1% INJ 10MG/ML (20 ML MDV) ONE (13:41)
[2023-06-16] MEDS ORDERED: PROPOFOL 10 MG/ML 20 ML VIAL IV ONE (13:41)
[2023-06-16] MEDS ORDERED: NALOXONE 0.4 MG/ML 1 ML VIAL IV PRN (13:52)
[2023-06-16] MEDS ORDERED: METOCLOPRAMIDE 5 MG/ML 2 ML VIAL IVP PRN (13:52)
[2023-06-16] MEDS ORDERED: PROMETHAZINE 25 MG TAB PO PRN (13:52)
--- NOTE | 2023-06-16 13:55 | P.OP ---
Date of Procedure: 06/16/23 Procedure(s) Performed: PREOPERATIVE DIAGNOSIS: Metastatic adenocarcinoma POSTOPERATIVE DIAGNOSIS: Same PROCEDURE: Port-A-Cath placement with fluoroscopic and ultrasound guidance SURGEON: Alessio EBL: Minimal ANESTHESIA: 5 cc COMPLICATIONS: None OPERATIVE PROCEDURE: Patient was brought and placed on the operative table in the supine position. The patient was placed under general anesthesia at that time. The chest and neck were prepped and draped in usual sterile fashion. The ultrasound probe was used to identify the location of the right internal jugular vein. The skin was localized with lidocaine. The Seldinger needle was advanced into the IJ under ultrasound guidance. The wire was advanced through the needle under fluoroscopic guidance into the superior vena cava. A port pocket was created in the right infraclavicular location. The catheter was tunneled from the wire entrance site to the port pocket. The port was then connected to the catheter. The dilator introducer was threaded over the guidewire. The guidewire and dilator were then removed. The catheter was advanced through the introducer and introducer was then removed. The tip was seen to be in the right atrial junction via fluoroscopy. A picture of the radiograph showing the tip of the catheter was taken. Port was flushed with both saline and a Hep-Lock solution. There was good flow both in and out of the port. The port was sutured in underlying tissues using 3-0 silk sutures. The subcutaneous tissues were reapproximated using 3-0 Vicryl sutures and the skin at both locations using 4-0 Monocryl sutures. Skin glue and sterile dressings then applied. DISPOSITION: Stable to recovery room
[2023-06-16 13:56] LABS: Glucose,Whole Blood 134 mg/dL (70-110)
[2023-06-16 14:14] VITALS: TEMP 98
--- NOTE | 2023-06-16 14:42 | XR ---
EXAMINATION TYPE: XR chest 1V confirm line [facility] DATE OF EXAM: 06/16/2023 COMPARISON: 08/20/2013 INDICATION: Port placement TECHNIQUE: Single frontal view of the chest is obtained. FINDINGS: The heart size is somewhat prominent. The pulmonary vasculature is normal. There is a moderate to large left pleural effusion. Some air bronchograms are present in the left ape x. Correlate for pneumonia Portable film placed on the right. Tip is in the superior vena cava region. No pneumothorax is eviden t. IMPRESSION: 1. Large left pleural effusion. 2. Clinical correlation for left upper lobe pneumonia. 3. Catheter placement superior vena cava region
[2023-06-16 14:59] VITALS: BP 128/81; PULSE 87; RESP 20
--- NOTE | 2023-06-16 22:50 | FL ---
Fluoroscopy INDICATION: Pain FINDINGS: Fluoroscopy time: 7 seconds. Total dose area product (DAP) in uGy*m?, mGy*cm? (or similar): 0.2373 Images obtained: 2. IMPRESSION: 1. Documentation of fluoroscopy.
== END 2023-06-16 15:22 | disposition home or self-care (01) ==
LOC: OR 11:22
PROVIDERS: ATTEND Surgery
DX: Z45.2 Encounter for adjustment and management of vascular access device (principal); E11.9 Type 2 diabetes mellitus without complications; E78.5 Hyperlipidemia, unspecified; I10 Essential (primary) hypertension; Z79.84 Long term (current) use of oral hypoglycemic drugs; Z79.899 Other long term (current) drug therapy
CPT/HCPCS: 80048; 85025; 77001; 36561; C1788; J2250; J2001 ×2; J1644; J1642; J2405; J0690; J3010; J2704

== ENCOUNTER → 2023-08-25 | Outpatient (CLI) | payer OTHER ==
[2023-08-25 12:37] LABS: African American GFR (CKD) >90 (>60 ml/min/1.73 sqM); Blood Urea Nitrogen 17 mg/dL (9-20); Non-African American GFR(CKD) >90 (>60 ml/min/1.73 sqM)
--- NOTE | 2023-08-25 15:09 | CT ---
EXAMINATION TYPE: CT ChestAbdPelvis w con CT DLP: 1519 mGycm, Automated exposure control for dose reduction was used. DATE OF EXAM: 08/25/2023 2:04 PM COMPARISON: PET CT 05/29/2023, CT chest abdomen pelvis 05/08/2023 CLINICAL INDICATION:Male, 63 years old with history of C18.9 MALIGNANT NEOPLASM OF COLON, UNSPECIFIED ; [facility], f/u colon cancer Technique: Multiple axial images of the chest, abdomen, and pelvis were obtained following the intrav enous administration of 100 mL Isovue-300. Oral contrast administered. Two-dimensional coronal and sa gittal reconstructions were obtained. Findings: CHEST: LUNGS/ PLEURA: No focal consolidation, or pneumothorax. Trace left pleural effusion. No suspicious pu lmonary nodule or mass. AIRWAY: Patent and unremarkable.. HEART: Size within normal limits. No pleural effusion. MEDIASTINUM: No pathologically enlarged mediastinal lymph nodes. VASCULATURE: No aortic aneurysm. Right chest wall IJ Mediport catheter identified with tip terminati ng in the high SVC. MUSCULOSKELETAL: No acute osseous abnormalities. No suspicious osseous lesion. SOFT TISSUES/LYMPH NODES: Stable mildly prominent bilateral axillary lymph nodes. LOWER NECK: No significant findings. ABDOMEN: ABDOMEN LIVER: Unremarkable GALLBLADDER AND BILE DUCTS: Gallbladder is not visualized and may be surgically absent. PANCREAS: Unremarkable. SPLEEN: Unremarkable. ADRENAL GLANDS: Unremarkable. KIDNEYS AND URETERS: No evidence of hydronephrosis or renal calculus. The kidneys enhance symmetrical ly. PELVIS BLADDER: Unremarkable REPRODUCTIVE: Unremarkable. ABDOMEN & PELVIS STOMACH AND BOWEL: Stomach and duodenum are unremarkable. Stool is present throughout the colon. Ente eddy contrast reaches the mid small bowel. Difficult to ascertain site of primary colonic malignancy d ue to lack of oral contrast within the colon and surrounding stool. No focal transition point identif ied. No evidence of bowel obstruction. PERITONEUM/RETROPERITONEUM: No evidence of pneumoperitoneum. Trace amount of ascites throughout the a bdomen and pelvis. Dropped surgical clip in the lower pelvis. Additional surgical clips within the ri ght mid abdomen. Similar appearance of omental caking most prominent within the mid abdomen. This is the largest region and measures 17.9 x 5.3 cm (series 3, image 78). Additional region identified with in the right mid abdomen appears to abut the prior appendectomy site and measures grossly 6.1 x 4.2 c m (series 3, 76). Additional regions identified along the margin of the liver and left upper quadrant . Overall omental caking appears similar to most recent PET/CT. VASCULATURE: Mild atherosclerotic calcifications are present throughout the abdominal aorta and its b ranches. MUSCULOSKELETAL: No acute osseous abnormalities. Mild retrolisthesis of L5 on S1. No suspicious osseo us lesion. Multilevel degenerative disc disease of the lumbar spine. LYMPH NODES: Scattered lymph nodes which are less than 1 cm short axis. SOFT TISSUE/ABDOMINAL WALL: Small hiatal hernia containing omental soft tissue. IMPRESSION: 1. Overall similar extensive omental caking compared to prior PET/CT. This correlates with reported history of malignancy. No new pathologic lymphadenopathy identified. Difficult to ascertain site of p rimary colonic malignancy due to lack of oral contrast within the colon and surrounding stool. No foc al transition point identified. 2. Trace ascites. 3. Trace left pleural effusion which is improved from prior exam.
== END | disposition home or self-care (01) ==
LOC: RADCTMAIN 11:51
PROVIDERS: ATTEND Internal Medicine
DX: C18.9 Malignant neoplasm of colon, unspecified (principal); J90 Pleural effusion, not elsewhere classified; E11.9 Type 2 diabetes mellitus without complications; I10 Essential (primary) hypertension; R18.8 Other ascites
CPT/HCPCS: 82565; 84520; 71260; 74177; 36415; Q9967

== ENCOUNTER → 2023-12-01 | Outpatient (CLI) | payer OTHER ==
[2023-12-01 12:59] LABS: African American GFR (CKD) 89 (>60 ml/min/1.73 sqM); Blood Urea Nitrogen 26 mg/dL (9-20); Non-African American GFR(CKD) 77 (>60 ml/min/1.73 sqM)
--- NOTE | 2023-12-01 16:10 | CT ---
EXAMINATION TYPE: CT ChestAbdPelvis w con DATE OF EXAM: 12/01/2023 COMPARISON: 08/25/2023, 05/08/2023 HISTORY: 63-year-old male C18.9 follow-up colon ca TECHNIQUE: Contiguous axial scanning of the chest, abdomen, and pelvis performed with IV Contrast, pa tient injected with 100 mL of Isovue 300. Delayed images through the kidneys were obtained. Coronal/s agittal reconstructions performed. CT DLP: 1493 mGycm Automated exposure control for dose reduction was used. FINDINGS: Chest: Heart normal size without pericardial effusion. Aorta normal caliber with conventional arch vessel branching anatomy. Right anterior chest wall injection port with catheter tip at the upper SVC. No thoracic lymphadenopathy by CT size criteria. No consolidation or pleural effusion. The previous trace left pleural effusion has resolved. ABDOMEN: Hypodense thickening along the anterior serosal surface of the liver currently measuring 8 mm thick v ersus 1 cm, previously. Hypodense thickening along the region of the falciform ligament is unchanged. Portal venous system is patent. No biliary ductal dilatation. Gallbladder is collapsed. Adrenal glands, kidneys, spleen, and pancreas within normal limits. Trace free fluid along the flanks remains unchanged. * However, large lobulated mesenteric mass in the mid and left-sided the abdomen measures up to 15.9 x 4.2 cm versus 17.9 x 5.3 cm, previously. * Right mid abdominal omental mass measures 4.6 x 2.9 cm. Versus 6.1 x 4.2 cm, previously. * Left omental cake measures up to 1.1 cm thick versus 1.6 cm, previously. No new mesenteric or retroperitoneal adenopathy is identified. No dilated small bowel or free air. Scattered mild to moderate stool. Pelvis: Bladder partially distended. Prostate gland mildly enlarged at 4.5 cm wide. No abnormal fluid collect ion in the pelvis or pelvic lymphadenopathy. Bones: Mild degenerative change at the hips. Advanced degenerative disc disease lumbar spine. Degenerative grade 1 retrolisthesis L2-L3. IMPRESSION: 1. OMENTAL CAKING IS DECREASING IN THE INTERVAL. HEPATIC SEROSAL THICKENING IS DECREASING NOW 8 MM VE RSUS 1 CM, PREVIOUSLY. THE RIGHT SIDED OMENTAL MASS IS SMALLER (4.6 cm now versus 6.1 cm, previously) . 2. Large mid and left-sided mesenteric mass is decreasing in size now 15.9 x 4.2 cm (versus 17.9 x 5. 3 cm, previously). Overall findings suggest ongoing but incomplete treatment response. [facility], , 12/01/2023 4:07 PM
== END | disposition home or self-care (01) ==
LOC: RADCTMAIN 12:19
PROVIDERS: ATTEND Internal Medicine
DX: C18.9 Malignant neoplasm of colon, unspecified
CPT/HCPCS: 36415; 71260; 74177; 82565; 84520

== ENCOUNTER 2024-01-25 11:26 | Emergency (ER) | payer OTHER ==
--- NOTE | 2024-01-25 12:04 | ED ---
Nausea/Vomiting/Diarrhea HPI - General Chief complaint: Nausea/Vomiting/Diarrhea Stated complaint: abd pain vomiting Time Seen by Provider: 01/25/24 11:43 Source: patient, RN notes reviewed Mode of arrival: ambulatory Limitations: no limitations - History of Present Illness Initial comments: This is a 63-year-old male with history of colon cancer and diabetes here for N/V and abdominal pain x 1 hour. Patient states he began having intermittent abdominal cramping (7 out of 10) and shaking/tremors with associated nausea/vomiting. Patient states she is currently receiving chemotherapy for his colon cancer and has an appointment with Dr. Triplett tomorrow. Patient's states he had a well cooked steak last night, the same as her, as well as pie and ice cream. Patient endorses use of previously prescribed Zofran 2 hours prior to ER arrival with minimal relief. Patient Dors is some concern for influenza as cause of symptoms. Patient denies fever, chills, fatigue, body aches, chest pain, dyspnea, this patient, diarrhea, hematemesis. MD complaint: nausea, vomiting, abdominal pain Onset/Timin -: days(s) Description of Vomiting: food contents, watery Associated Abdominal Pain: Yes Location: periumbilical Severity scale (1-10): 7 Quality: cramping Consistency: intermittent Context: history of abdominal surgery - Related Data Home Medications Medication Instructions Recorded Confirmed Chlorthalidone [Hygroten] 50 mg PO QAM 08/30/13 10/09/23 Enalapril [Vasotec] 20 mg PO BID 08/30/13 10/09/23 metFORMIN HCL [metFORMIN HCL ER] 750 mg PO BID 08/30/13 10/09/23 sitaGLIPtin [Januvia] 100 mg PO QAM 08/30/13 10/09/23 Empagliflozin [Jardiance] 25 mg PO QAM 08/18/18 10/09/23 cloNIDine HCL [Catapres] 0.1 mg PO BID 08/18/18 10/09/23 Rosuvastatin [Crestor] 10 mg PO DAILY 06/13/23 10/09/23 Tamsulosin [Flomax] 0.4 mg PO DAILY 06/13/23 10/09/23 Ondansetron Odt [Zofran Odt] 4 mg PO Q6H PRN 01/25/24 01/25/24 carvediloL [Coreg] 12.5 mg PO BID 01/25/24 01/25/24 Allergies Allergy/AdvReac Type Severity Reaction Status Date / Time sodium ferric gluconate AdvReac Severe Nausea & Verified 01/25/24 13:55 complex Vomiting [From Ferrlecit] sucrose [From Ferrlecit] AdvReac Severe Nausea & Verified 01/25/24 13:55 Vomiting Review of Systems ROS Statement: Those systems with pertinent positive or pertinent negative responses have been documented in the HPI. ROS Other: All systems not noted in ROS Statement are negative. Past Medical History Past Medical History: Cancer, Diabetes Mellitus, Hyperlipidemia, Hypertension Additional Past Medical History / Comment(s): Current colon cancer. History of Any Multi-Drug Resistant Organisms: None Reported Past Surgical History: Appendectomy, Back Surgery, Tonsillectomy Additional Past Surgical History / Comment(s): SINUS SURGERY. Past Anesthesia/Blood Transfusion Reactions: No Reported Reaction Past Psychological History: No Psychological Hx Reported Smoking Status: Never smoker Past Alcohol Use History: None Reported Past Drug Use History: None Reported - Past Family History Father Family Medical History: Cancer General Exam Limitations: no limitations Course Vital Signs 01/25/24 01/25/24 11:34 15:25 Temperature 97.9 F Pulse Rate 72 89 Respiratory 20 18 Rate Blood Pressure 176/108 161/100 O2 Sat by Pulse 100 99 Oximetry Medical Decision Making - Medical Decision Making Was pt. sent in by a medical professional or institution (Dr. PA, COURT SUPERVISOR, urgent care, hospital, or prison...) When possible be specific @ -No Did you speak to anyone other than the patient for history (EMS, parent, family, police, friend...)? What history was obtained from this source @ -Patient's expounded on meal eaten yesterday Did you review nursing and triage notes (agree or disagree)? Why? @ -I reviewed and agree with nursing and triage notes Were old charts reviewed (outside hosp., previous admission, EMS record, old EKG, old radiological studies, urgent care reports/EKG's, prison records)? Report findings @ -No old charts were reviewed Differential Diagnosis (chest pain, altered mental status, abdominal pain women, abdominal pain men, vaginal bleeding, weakness, fever, dyspnea, syncope, headache, dizziness, GI bleed, back pain, seizure, CVA, palpatations, mental health, musculoskeletal)? @ -Differential Abdominal Pain Men: Appendicitis, cholecystitis, diverticulosis, ischemic bowel, pancreatitis, hepatitis, UTI, gastroenteritis, AAA, incarcerated hernia, bowel obstruction, constipation, inflammatory bowel, hepatitis, peptic ulcer disease, splenic infarction, perforated viscus, testicular torsion, this is not meant to be an all-inclusive list EKG interpreted by me (3pts min.). @ -Not done X-rays interpreted by me (1pt min.). @ -None done CT interpreted by me (1pt min.). @ -Abdominal CT showed no acute processes or abnormal findings. U/S interpreted by me (1pt. min.). @ -None done What testing was considered but not performed or refused? (CT, X-rays, U/S, l abs)? Why? @ -None What meds were considered but not given or refused? Why? @ -None Did you discuss the management of the patient with other professionals (professionals i.e. , PA, COURT SUPERVISOR, lab, RT, psych nurse, medical social consultant, warp tying machine tender, teacher, media liaison officer, field case manager)? Give summary @ -Spoke to Dr. Gonsalves and advised of HPI and physical exam findings including imaging and lab work. Dr. Gonsalves agrees with discharge plan and patient will follow-up with Dr. Triplett tomorrow for his appointment Was smoking cessation discussed for >3mins.? @ -No Was critical care preformed (if so, how long)? @ -No Were there social determinants of health that impacted care today? How? (Homelessness, low income, unemployed, alcoholism, drug addiction, transportation, low edu. Level, literacy, decrease access to med. care, long term, rehab)? @ -No Was there de-escalation of care discussed even if they declined (Discuss DNR or withdrawal of care, Hospice)? DNR status @ -No What co-morbidities impacted this encounter? (DM, HTN, Smoking, COPD, CAD, Cancer, CVA, ARF, Chemo, Hep., AIDS, mental health diagnosis, sleep apnea, morbid obesity)? @ -Colon cancer Was patient admitted / discharged? Hospital course, mention meds given and route, prescriptions, significant lab abnormalities, going to OR and other pertinent info. @ -Discharge. Cepheid test was negative and lab work was largely unremarkable. CT abdomen/pelvis revealed no acute or concerning findings. Patient initially given Zofran for nausea with no relief. Reglan then given with resolution of nausea. Patient given IV Toradol and Dilaudid for pain with patient noting pain at 5 out of 10 afterwards. Patient initially denied second dose of Dilaudid but later accepted with further reduction in pain. To Dr. Wilhelm by phone with patient's condition and findings. All parties agreed to patient discharge and symptom management with Zofran and home remedies along with TREVOR diet. Advised follow-up for appointment tomorrow. Return to ER if pain or nausea/vomiting should worsen or fever should develop. Undiagnosed new problem with uncertain prognosis? @ -No Drug Therapy requiring intensive monitoring for toxicity (Heparin, Nitro, Insulin, Cardizem)? @ -No Were any procedures done? @ -No Diagnosis/symptom? @ -Gastroenteritis Acute, or Chronic, or Acute on Chronic? @ -Acute Uncomplicated (without systemic symptoms) or Complicated (systemic symptoms)? @ -Uncomplicated Side effects of treatment? @ -No Exacerbation, Progression, or Severe Exacerbation? @ -No Poses a threat to life or bodily function? How? (Chest pain, USA, MD, pneumonia, PE, COPD, DKA, ARF, appy, cholecystitis, CVA, Diverticulitis, Homicidal, Suicidal, threat to staff... and all critical care pts) @ -No - Lab Data Result diagrams: 01/25/24 12:40 01/25/24 12:40 Lab Results 01/25/24 01/25/24 01/25/24 Range/Units 12:40 12:40 12:40 WBC 10.8 H (3.8-10.6) k/uL RBC 3.84 L (4.30-5.90) m/uL Hgb 12.2 L (13.0-17.5) gm/dL Hct 36.5 L (39.0-53.0) % MCV 94.9 (80.0-100.0) fL MCH 31.8 (25.0-35.0) pg MCHC 33.5 (31.0-37.0) g/dL RDW 16.0 H (11.5-15.5) % Plt Count 313 (150-450) k/uL MPV 7.1 Neutrophils % 77 % Lymphocytes % 14 % Monocytes % 7 % Eosinophils % 1 % Basophils % 0 % Neutrophils # 8.2 H (1.3-7.7) k/uL Lymphocytes # 1.6 (1.0-4.8) k/uL Monocytes # 0.7 (0-1.0) k/uL Eosinophils # 0.1 (0-0.7) k/uL Basophils # 0.0 (0-0.2) k/uL Anisocytosis Slight Sodium 134 L (137-145) mmol/L Potassium 4.0 (3.5-5.1) mmol/L Chloride 97 L (98-107) mmol/L Carbon Dioxide 25 (22-30) mmol/L Anion Gap 12 mmol/L BUN 24 H (9-20) mg/dL Creatinine 0.86 (0.66-1.25) mg/dL Est GFR (CKD-EPI)AfAm >90 (>60 ml/min/1.73 sqM) Est GFR (CKD-EPI)NonAf >90 (>60 ml/min/1.73 sqM) Glucose 187 H (74-99) mg/dL Plasma Lactic Acid Marcio (0.7-2.0) mmol/L Calcium 10.1 (8.4-10.2) mg/dL Total Bilirubin 0.6 (0.2-1.3) mg/dL AST 27 (17-59) U/L ALT 17 (4-49) U/L Alkaline Phosphatase 128 H (38-126) U/L Total Protein 8.7 H (6.3-8.2) g/dL Albumin 4.6 (3.5-5.0) g/dL Amylase 75 (30-110) U/L Lipase 160 (23-300) U/L Influenza Type A (PCR) Not Detected (Not Detectd) Influenza Type B (PCR) Not Detected (Not Detectd) RSV (PCR) Not Detected (Not Detectd) SARS-CoV-2 (PCR) Not Detected (Not Detectd) 01/25/24 Range/Units 12:40 WBC (3.8-10.6) k/uL RBC (4.30-5.90) m/uL Hgb (13.0-17.5) gm/dL Hct (39.0-53.0) % MCV (80.0-100.0) fL MCH (25.0-35.0) pg MCHC (31.0-37.0) g/dL RDW (11.5-15.5) % Plt Count (150-450) k/uL MPV Neutrophils % % Lymphocytes % % Monocytes % % Eosinophils % % Basophils % % Neutrophils # (1.3-7.7) k/uL Lymphocytes # (1.0-4.8) k/uL Monocytes # (0-1.0) k/uL Eosinophils # (0-0.7) k/uL Basophils # (0-0.2) k/uL Anisocytosis Sodium (137-145) mmol/L Potassium (3.5-5.1) mmol/L Chloride (98-107) mmol/L Carbon Dioxide (22-30) mmol/L Anion Gap mmol/L BUN (9-20) mg/dL Creatinine (0.66-1.25) mg/dL Est GFR (CKD-EPI)AfAm (>60 ml/min/1.73 sqM) Est GFR (CKD-EPI)NonAf (>60 ml/min/1.73 sqM) Glucose (74-99) mg/dL Plasma Lactic Acid Marcio 1.9 (0.7-2.0) mmol/L Calcium (8.4-10.2) mg/dL Total Bilirubin (0.2-1.3) mg/dL AST (17-59) U/L ALT (4-49) U/L Alkaline Phosphatase (38-126) U/L Total Protein (6.3-8.2) g/dL Albumin (3.5-5.0) g/dL Amylase (30-110) U/L Lipase (23-300) U/L Influenza Type A (PCR) (Not Detectd) Influenza Type B (PCR) (Not Detectd) RSV (PCR) (Not Detectd) SARS-CoV-2 (PCR) (Not Detectd) Disposition Clinical Impression: Gastroenteritis Disposition: HOME SELF-CARE Condition: Good Instructions (If sedation given, give patient instructions): Acute Nausea and V omiting (ED) Additional Instructions: Estela tea/elsa for nausea. At home Zofran every 8 hours as needed for nausea. TREVOR diet. Return to ER if symptoms persist or worsen in next 24 to 48 hours Is patient prescribed a controlled substance at d/c from ED?: No Referrals: Chato Villela MD [Primary Care Provider] - 1-2 days Time of Disposition: 15:42
[2024-01-25] MEDS: ONDANSETRON 4 MG/2 ML VIAL IVP STA (12:40)
[2024-01-25] MEDS: SODIUM CHLORIDE 0.9% 1,000 ML IV STA (12:44)
[2024-01-25 12:53] LABS: Anisocytosis Slight; Basophils % (A) 0 %; Eosinophils # (A) 0.1 k/uL (0-0.7); Eosinophils % (A) 1 %; HCT 36.5 % (39.0-53.0); HGB 12.2 gm/dL (13.0-17.5); Lymphocytes # (A) 1.6 k/uL (1.0-4.8); Lymphocytes % (A) 14 %; MCH 31.8 pg (25.0-35.0); MCHC 33.5 g/dL (31.0-37.0); MCV 94.9 fL (80.0-100.0); Mean Platelet Volume 7.1; Monocytes # (A) 0.7 k/uL (0-1.0); Monocytes % (A) 7 %; Neutrophils # (A) 8.2 k/uL (1.3-7.7); Neutrophils % (A) 77 %; Platelet Count 313 k/uL (150-450); RBC 3.84 m/uL (4.30-5.90); WBC 10.8 k/uL (3.8-10.6)
[2024-01-25 13:30] LABS: ALT 17 U/L (4-49); AST 27 U/L (17-59); African American GFR (CKD) >90 (>60 ml/min/1.73 sqM); Albumin 4.6 g/dL (3.5-5.0); Alkaline Phosphatase 128 U/L (38-126); Amylase 75 U/L (30-110); Anion Gap 12 mmol/L; Blood Urea Nitrogen 24 mg/dL (9-20); Calcium 10.1 mg/dL (8.4-10.2); Carbon Dioxide 25 mmol/L (22-30); Chloride 97 mmol/L (98-107); Glucose 187 mg/dL (74-99); Lipase 160 U/L (23-300); Non-African American GFR(CKD) >90 (>60 ml/min/1.73 sqM); Sodium 134 mmol/L (137-145); Total Bilirubin 0.6 mg/dL (0.2-1.3); Total Protein 8.7 g/dL (6.3-8.2)
[2024-01-25] MEDS: METOCLOPRAMIDE 5 MG/ML 2 ML VIAL IVP STA (13:35)
[2024-01-25] MEDS: HYDROmorphone 0.5 MG/0.5 ML SYRINGE IVP STA ×2 (13:54→15:33)
[2024-01-25] MEDS: KETOROLAC 15 MG/ML 1 ML VIAL IVP STA (13:54)
--- NOTE | 2024-01-25 15:12 | CT ---
EXAMINATION TYPE: CT abdomen pelvis w con DATE OF EXAM: 01/25/2024 2:42 PM COMPARISON: 12/01/2023 CLINICAL INDICATION: Male, 63 years old with history of Abdominal pain with nausea and vomiting; umbi lical pain TECHNIQUE: Axial CT abdomen pelvis w con;Sagittal and coronal reformats were created on a separate w orkstation. Contrast used:100 ml mL of Isovue 300 with IV Contrast, (none if empty) Oral contrast used: without Oral Contrast (none if empty) CT DLP: 842.2 mGycm, Automated exposure control for dose reduction was used. FINDINGS: LOWER CHEST: Unremarkable ABDOMEN LIVER: Unremarkable GALLBLADDER AND BILE DUCTS: Unremarkable. PANCREAS: Unremarkable. SPLEEN: Unremarkable. ADRENAL GLANDS: Unremarkable. KIDNEYS AND URETERS: No evidence of hydronephrosis or renal calculus. The ureters are unremarkable. Renal pelves are proportionally dilated no obstructing calculus or calculus visualized PELVIS BLADDER: No evidence for wall thickening or mass given limitations of exam. REPRODUCTIVE: Unremarkable. ABDOMEN & PELVIS STOMACH AND BOWEL: No evidence of bowel obstruction. Moderate amount stool throughout the colon. The appendix is not visualized are multiple surgical clips around the expected location of the appendix. PERITONEUM/RETROPERITONEUM: No evidence of pneumoperitoneum. Omental caking not as well appreciated t here is scattered free fluid in the left upper quadrant. An free fluid around the liver and right kid saul. VASCULATURE: No evidence of aortic aneurysm. MUSCULOSKELETAL: No acute osseous abnormalities LYMPH NODES: No gross evidence for lymphadenopathy. SOFT TISSUE/ABDOMINAL WALL: Unremarkable IMPRESSION: 1. No definitive acute abdominal process. The appendix is not visualized and appears to be surgicall y absent with surgical clips present. The renal pelves are symmetrically dilated no obstructing calcu megan visualized. No evidence for bowel obstruction. 2. Evaluation of the previous omental caking is somewhat limited due to lack of oral contrast. There is scattered trace free fluid throughout the abdomen. [facility], , 01/25/2024 3:10 PM
[2024-01-25 16:23] VITALS: BP 164/100; PULSE 78; RESP 17; TEMP 97.8
== END 2024-01-25 16:23 | disposition home or self-care (01) ==
LOC: EC 11:26
DX: K52.9 Noninfective gastroenteritis and colitis, unspecified (principal); C18.9 Malignant neoplasm of colon, unspecified; Z88.8 Allergy status to other drugs, medicaments and biological substances; Z90.49 Acquired absence of other specified parts of digestive tract; Z90.89 Acquired absence of other organs; Z11.52 Encounter for screening for COVID-19
CPT/HCPCS: 36415; 80053; 82150; 83605; 83690; 85025; 87636; 74177; 99284; 96374; 96376; 96375 ×3; 96361 ×3; J2765; J2405; J1885; J1171; Q9967

== ENCOUNTER → 2024-02-23 | Outpatient (CLI) | payer OTHER ==
[2024-02-23 09:45] LABS: African American GFR (CKD) >90 (>60 ml/min/1.73 sqM); Blood Urea Nitrogen 22 mg/dL (9-20); Non-African American GFR(CKD) 83 (>60 ml/min/1.73 sqM)
--- NOTE | 2024-02-23 11:37 | CT ---
EXAMINATION TYPE: CT ChestAbdPelvis w con DATE OF EXAM: 02/23/2024 COMPARISON: 01/25/2024, 12/01/2023 HISTORY: f/u colon cancer CT DLP: 1027.90 mGycm Automated exposure control for dose reduction was used. CONTRAST: CT scan of the chest, abdomen and pelvis is performed with Oral Contrast and with IV Contrast, patien t injected with 100 mL of Isovue 300. FINDINGS: LUNGS: No consolidative pneumonia. No pleural effusion or pneumothorax. 3 mm subpleural nodule right upper lobe image 36 anteriorly. 2 small to characterize but has a benign appearance. Additional 1 to 2 mm posterior subpleural nodules right lower lobe likely benign but nonspecific and should be monito red. Calcified granuloma right lower lobe. MEDIASTINUM: There are no greater than 1 cm hilar or mediastinal lymph nodes. No pericardial effusi on is seen. OTHER: No additional significant abnormality is seen. LIVER/GB: Liver is reduced in attenuation. There is a small amount of fluid surrounding the liver. PANCREAS: No significant abnormality is seen. SPLEEN: No significant abnormality is seen. ADRENALS: Bilateral adrenal gland thickening. KIDNEYS: No significant abnormality is seen. BOWEL: No obstruction. Postsurgical changes noted. REPRODUCTIVE ORGANS: No gross abnormality seen. LYMPH NODES: No greater than 1 cm abdominal or pelvic lymph nodes are appreciated. Subcentimeter abdo arley and retroperitoneal lymph nodes are noted measuring short axis. OSSEOUS STRUCTURES: No significant abnormality is seen. OTHER: Lobulated mesenteric mass slightly reduced in size measuring 3.9 x 12.8 cm versus 4.2 x 15.9 cm right mid abdominal mass is less well appreciated on today's exam. Some fluid or omental thickening along the liver measures 9 mm and stable. Calcification in the right gluteal soft tissues. There is mild soft tissue anasarca. Small bilateral fat-containing inguinal hernia. IMPRESSION: 1. Slight interval reduced size in the mesenteric mass now measuring 3.9 x 12.8 cm versus 4.2 x 15.9 cm. 2. Omental caking or hepatic serosal thickening stable now measuring 9 mm. [facility], , 02/23/2024 11:35 AM
== END | disposition home or self-care (01) ==
LOC: RADCTMAIN 09:00
PROVIDERS: ATTEND Internal Medicine
DX: C18.9 Malignant neoplasm of colon, unspecified (principal); E11.9 Type 2 diabetes mellitus without complications; R19.07 Generalized intra-abdominal and pelvic swelling, mass and lump; I10 Essential (primary) hypertension; K76.89 Other specified diseases of liver
CPT/HCPCS: 82565; 84520; 71260; 74177; 36415; Q9967

== ENCOUNTER → 2024-05-28 | Outpatient (CLI) | payer OTHER ==
[2024-05-28 09:29] LABS: African American GFR (CKD) 88 (>60 ml/min/1.73 sqM); Blood Urea Nitrogen 25 mg/dL (9-20); Non-African American GFR(CKD) 76 (>60 ml/min/1.73 sqM)
--- NOTE | 2024-05-28 10:51 | CT ---
EXAMINATION TYPE: CT ChestAbdPelvis w con DATE OF EXAM: 05/28/2024 10:32 AM COMPARISON: None 12/01/2023, PET, 02/23/2024, 01/25/2024. CLINICAL INDICATION: Male, 63 years old with history of C18.9 colon ca; [facility], Colon Cancer Technique: CT ChestAbdPelvis w con; Multiple axial images were obtained. Two-dimensional coronal and sagittal reconstructions were obtained. Contrast used:100 ml mL of Isovue 300 with IV Contrast, (None if empty) Oral contrast used: without Oral Contrast CT DLP: 1305 mGycm, Automated exposure control for dose reduction was used. Findings: CHEST: LUNGS/ PLEURA: No focal consolidation or pneumothorax. Trace right pleural effusion. No left pleural effusion. Right lower lung pulmonary nodule series 3 image 54, stable from prior. AIRWAY: Patent and unremarkable. HEART: Size within normal limits. No significant coronary artery calcifications. MEDIASTINUM: No gross evidence of adenopathy. VASCULATURE: No aortic aneurysm. Right chest Lhmwyk-a-[id number] with tip terminating in the superior vena cava. MUSCULOSKELETAL: No acute osseous abnormalities. SOFT TISSUES/LYMPH NODES: Unremarkable. LOWER NECK: No significant findings. ABDOMEN: ABDOMEN LIVER: Neuro liver lesions are definitively visualized. GALLBLADDER AND BILE DUCTS: Unremarkable. PANCREAS: Unremarkable. SPLEEN: Unremarkable. ADRENAL GLANDS: Unremarkable. KIDNEYS AND URETERS: No evidence of hydronephrosis or renal calculus. The ureters are unremarkable. PELVIS BLADDER: Unremarkable REPRODUCTIVE: Prostate is enlarged in size measuring 4.6 cm in transverse dimension. ABDOMEN & PELVIS STOMACH AND BOWEL: No evidence of bowel obstruction. A abdominal surgical changes with clips present. Soft tissue fullness in this region is decreased. PERITONEUM/RETROPERITONEUM: No evidence of pneumoperitoneum. Trace free fluid throughout the abdomen particularly around the liver and anterior abdomen. Ill-defined soft tissue around the stomach and in the mesentery not significantly changed given differences in technique. Omental mass/caking extendin g at least 14.1 x 3.3 cm which is hard to compare given differences in technique. Not all that differ ent compared to priors dating back to at least 12/01/2023. Right VASCULATURE: No evidence of aortic aneurysm. MUSCULOSKELETAL: No acute osseous abnormalities LYMPH NODES: No gross evidence for lymphadenopathy. SOFT TISSUE/ABDOMINAL WALL: Unremarkable IMPRESSION: 1. Persistent mesenteric mass/omental caking. Not all that different from priors. A follow-up pet/CT is recommended for comparison of metabolic activity. No new or enlarging lymph nodes identified. Red uction in soft tissue fullness in the right Abdomen near surgical clips. Lack of oral contrast limits evaluation slightly. [facility], , 05/28/2024 10:48 AM
== END | disposition home or self-care (01) ==
LOC: RADCTMAIN 08:29
PROVIDERS: ATTEND Internal Medicine
DX: C18.9 Malignant neoplasm of colon, unspecified (principal); R19.07 Generalized intra-abdominal and pelvic swelling, mass and lump; I10 Essential (primary) hypertension; E11.9 Type 2 diabetes mellitus without complications; E78.5 Hyperlipidemia, unspecified
CPT/HCPCS: 82565; 84520; 71260; 74177; 36415; Q9967

== ENCOUNTER → 2024-09-21 | Outpatient (CLI) | payer OTHER ==
[2024-09-21 11:37] LABS: African American GFR (CKD) >90 (>60 ml/min/1.73 sqM); Blood Urea Nitrogen 25 mg/dL (9-20); Non-African American GFR(CKD) 83 (>60 ml/min/1.73 sqM)
--- NOTE | 2024-09-21 13:38 | CT ---
EXAMINATION TYPE: CT ChestAbdPelvis w con DATE OF EXAM: 09/21/2024 COMPARISON: 05/28/2024 CLINICAL INDICATION: Male, 64 years old with history of C18.[address] DLP: 1052.40 mGycm Automated exposure control for dose reduction was used. CONTRAST: CT scan of the chest, abdomen and pelvis is performed with Oral Contrast and with IV Contrast, patien t injected with 100 ml mL of Isovue 300. FINDINGS: CT chest: There are a few scattered new right lung nodules some of which are groundglass suspicious for metasta tic disease. Left lung is clear. There is no abnormal airspace/consolidative density or abnormal interstitial density. There has been interval increase in the [id number] right pleural effusion.. The great vessels and chest are normal there is no mediastinal, hilar or axillary adenopathy. No focal osseous lesions are seen. CT abdomen and pelvis: Gallbladder is normal without distention, pericholecystic fluid, wall thickening or gallstone. There is no biliary ductal dilatation. There is a persistent stable omental mass/caking. There is no focal mass or organomegaly involving the liver, pancreas, spleen or adrenal glands.. There is no solid renal mass or hydronephrosis. There is no retroperitoneal adenopathy or hemorrhage in the caliber of the abdominal aorta is normal. The bowel loops are normal in caliber and there is no dilatation or obstruction. There are postsurgic al changes in the ascending colon. There has been a mild interval increase in the small degree of ascites. There is no pelvic mass or ad enopathy. No focal osseous lesions are seen. Soft tissue the abdomen and pelvis are normal. IMPRESSION: 1. Interval increase in the [id number] right pleural effusion. 2. Interval development of a few subtle groundglass densities and nodular disease in the right lung p ossibly indicating pulmonary metastasis to the right lung. 3. Mild interval increase in the mild amount of ascites. 4. No change in the omental mass/caking. 5. Overall, mild progression of metastatic disease within the chest and abdomen. [facility], , 09/21/2024 1:36 PM
== END | disposition home or self-care (01) ==
LOC: RADCTMAIN 10:54
PROVIDERS: ATTEND Internal Medicine
DX: C18.9 Malignant neoplasm of colon, unspecified (principal); I10 Essential (primary) hypertension; E11.9 Type 2 diabetes mellitus without complications; J90 Pleural effusion, not elsewhere classified; R18.8 Other ascites; J98.4 Other disorders of lung
CPT/HCPCS: 82565; 84520; 71260; 74177; 36415; Q9967